=== PATIENT | male | born 1940 | race Two or more races ===

== ENCOUNTER 2021-01-17 10:30 | Inpatient (IN) | payer OTHER ==
[~2021-01-17] VITALS: Ht 160 cm; Wt 81.6 kg
[2021-01-17] MEDS ORDERED: GEMFIBROZIL600 MG PO (15:05)
[2021-01-17] MEDS ORDERED: ARICEPT5 MG PO (15:05)
[2021-01-17] MEDS ORDERED: ZESTRIL10 M1 PO (15:06)
[2021-01-17] MEDS ORDERED: ACID REDUCER20 M1 PO (15:06)
[2021-01-17] MEDS ORDERED: FORTAMET500 MG PO (15:06)
[2021-01-17] MEDS ORDERED: MELOXICAM15 MG PO (15:07)
[2021-01-24] MEDS ORDERED: TRAMADOL HCL50 MG (09:10)
[2021-01-24] MEDS ORDERED: OMEPRAZOLE20 M1 (09:10)
[2021-01-24] MEDS ORDERED: GABAPENTIN300 M2 (09:11)
[2021-01-24] MEDS ORDERED: SIMVASTATIN20 MG (09:11)
[2021-01-26] MEDS ORDERED: PERCOCET 5-3251 EACH PO (11:56)
[2021-01-26] MEDS ORDERED: ELIQUIS2.5 MG PO (11:56)
[2021-01-26] MEDS ORDERED: DUI500 PO (11:56)
== END 2021-01-26 16:44 | disposition home or self-care (01) | DRG 470 ==
LOC: O/R 01-24 06:00 → SURH 01-24 10:00
PROVIDERS: ADMIT Orthopaedic Surgery; ATTEND Orthopaedic Surgery
PROC: 0SRB0JZ Replacement of Left Hip Joint with Synthetic Substitute, Open Approach (ICD-10-PCS; principal; 2021-01-24 10:00)
DX: M16.12 Unilateral primary osteoarthritis, left hip (principal); D62 Acute posthemorrhagic anemia; I10 Essential (primary) hypertension; E11.9 Type 2 diabetes mellitus without complications; Z79.84 Long term (current) use of oral hypoglycemic drugs

== ENCOUNTER 2021-02-06 11:10 | Inpatient (IN) | payer OTHER ==
[~2021-02-06] VITALS: Ht 165.1 cm; Wt 81.6 kg
[~2021-02-06 11:10] MED LIST: ACID REDUCER20 M1 PO; ARICEPT5 MG PO; DUI500 PO; ELIQUIS2.5 MG PO; FORTAMET500 MG PO; GABAPENTIN300 M2; GEMFIBROZIL600 MG PO; MELOXICAM15 MG PO; OMEPRAZOLE20 M1; PERCOCET 5-3251 EACH PO; SIMVASTATIN20 MG; TRAMADOL HCL50 MG; ZESTRIL10 M1 PO
--- NOTE | 2021-02-06 11:21 | NUR ---
SE RECIBE PTE ALERTA Y ORIENTADO X3 ,ENAMBULANCIA REFIEREN PARAMEDICOS QUE LO REFIERE EL PARA ADMICION PARA OPERARLO DE LA CADERA IZQUIERDA ,BONN[place] CADERA FUE OPERADAD ANTERIORMENTE TUVO DESPLAZAMIENTO DE CADERA.
--- NOTE | 2021-02-06 12:07 | NUR ---
SE ORIENTA A PACIENTE SOBRE TRATAMIENTO ORDENADO, LA MISMA VERBALIZA ENTENDER. RN HAWK COLECTA MUESTRAS ORDENADAS, Y COLOCA VENOPUNCION PATENTE, MICHEAL DE ERITEMA Y EDEMA, Y CONECTA TERAPIA DE IVF'S. RN HAWK COLECTA TUBOS PILOTOS Y SE ENTREGA REQUISICION DE COMPONENTES SANGUINEOS A BANCO DE GLORIA. SE REALIZA EKG Y SE MANTIENE PTE EN OBSERVACION POR CAMBIOS EN RENEE CONDICION.
[2021-02-10] MEDS ORDERED: ULTRACET PO (07:41)
[2021-02-10] MEDS ORDERED: ELIQUIS2.5 MG PO (07:41)
[2021-03-24] MEDS ORDERED: ELIQUIS2.5 MG PO (07:29)
[2021-03-24] MEDS ORDERED: ULTRACET PO (07:29)
== END 2021-02-10 15:59 | DRG 467 ==
LOC: ER 11:10 → SURG 18:19 → SEC-K 18:19 → SURG 02-07 00:52
PROVIDERS: ADMIT Orthopaedic Surgery; ATTEND Orthopaedic Surgery
PROC: 0SWB0JZ Revision of Synthetic Substitute in Left Hip Joint, Open Approach (ICD-10-PCS; principal; 2021-02-07 17:15)
DX: T84.021A Dislocation of internal left hip prosthesis, initial encounter (principal); D62 Acute posthemorrhagic anemia; Z96.642 Presence of left artificial hip joint; M16.12 Unilateral primary osteoarthritis, left hip; E11.9 Type 2 diabetes mellitus without complications; I10 Essential (primary) hypertension